=== PATIENT | female | born 2000 | race Caucasian/White ===

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

== ENCOUNTER 2019-02-15 13:13 | Emergency (ER) | payer OTHER, BC | END 2019-02-15 16:03 | disposition home or self-care (01) | LOC: FTE 13:13 | DX: J06.9 Acute upper respiratory infection, unspecified (principal) | CPT/HCPCS: 99283 ==